=== PATIENT | male | born 1995 | race Caucasian/White ===

== ENCOUNTER 2025-04-19 17:16 | Emergency (ER) | payer BC, SELFPAY ==
[2025-04-19 17:38] VITALS: BP 144/77; PULSE 62; TEMP 36.7; O2SAT 100; BMI 26.6
--- NOTE | 2025-04-19 17:40 | XR_ITS ---
The [address] [address] Patient Name: CARRILLO GUTIERREZ MRN: [id number] date: 1995 Sex: M Assigned Patient Location: ER Current Patient Location: ER Accession/Order Number: [id number] Exam Date: 04/19/2025 17:56 Report Date: 04/19/2025 17:57 At the request of: ELEUTERIO OLIVEIRA MD Procedure: XR wrist RT min 3V XR wrist RT min 3V 04/19/2025 5:50 PM SIGNS AND SYMPTOMS: Right wrist pain PROTOCOL: Frontal, lateral, and oblique radiographs of the right wrist COMPARISON: None FINDINGS: The radiocarpal joint and carpal rows are preserved. There is no fracture or dislocation. No significant soft tissue swelling. XR/XR wrist RT min 3V IMPRESSION: No acute bony injury. Impression dictated by: Kishan Brooks M.D. 04/19/2025 5:57 PM Dictation Location: [place] [address] Electronically authenticated by: [id number] Y Date: 04/19/2025 17:57
--- NOTE | 2025-04-19 17:40 | XR_ITS ---
The [address] [address] Patient Name: CARRILLO GUTIERREZ MRN: [id number] date: 1995 Sex: M Assigned Patient Location: ER Current Patient Location: ER Accession/Order Number: [id number] Exam Date: 04/19/2025 17:57 Report Date: 04/19/2025 17:59 At the request of: ELEUTERIO OLIVEIRA MD Procedure: XR hand RT min 3V XR hand RT min 3V 04/19/2025 5:50 PM SIGNS AND SYMPTOMS: Right hand pain, greatest near the fifth metacarpal PROTOCOL: Frontal, lateral, and oblique radiographs of the right hand COMPARISON: None FINDINGS: The joint spaces are preserved. There is subtle cortical lucency along the dorsal aspect of the base of the fifth metacarpal which may represent a minimally displaced fracture. There is accompanying soft tissue swelling. No additional fractures are noted. XR/XR hand RT min 3V IMPRESSION: There is subtle cortical lucency along the dorsal aspect of the base of the fifth metacarpal which may represent a minimally displaced fracture. There is accompanying soft tissue swelling. Correlation with point tenderness in this location is recommended. Impression dictated by: Kishan Brooks M.D. 04/19/2025 5:59 PM Dictation Location: [place] [address] Electronically authenticated by: [id number] Y Date: 04/19/2025 17:59
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
--- NOTE | 2025-04-19 19:43 | PC.NURSE ---
i gave this patient verbal and written discharge orders and this patient voices yes to understanding these. at time of discharge this patient voices no concerns and shows no signs of discharge
== END 2025-04-19 19:42 | disposition home or self-care (01) ==
PROVIDERS: Emergency Provider Internal Medicine
DX: S62.306A Unspecified fracture of fifth metacarpal bone, right hand, initial encounter for closed fracture (principal); W22.8XXA Striking against or struck by other objects, initial encounter
CPT/HCPCS: 29125; 73110; 73130; 99283